=== PATIENT | male | born 1950 | race Caucasian/White ===

== ENCOUNTER 2016-12-06 10:51 | Inpatient (IN) | payer OTHER ==
[~2016-12-06] VITALS: Ht 190.5 cm; Wt 116.5 kg
[2017-01-11] VITALS (11 sets, daily range): BP systolic 112–171; BP diastolic 67–94; PULSE 92–113; TEMP 97.4–98.9
[2017-01-11] MEDS ORDERED: XANAX 1MG1 MG PO (06:39)
[2017-01-11] MEDS ORDERED: [UNRECOGNIZED DRUG - OTHER] TP (06:40)
[2017-01-11] MEDS ORDERED: ECONAZOLE NITRATE11 TOP (06:41)
[2017-01-11] MEDS ORDERED: FLONASEALLERGY NS (06:42)
[2017-01-12 02:21] VITALS: BP 111/76; PULSE 86; TEMP 97.8
[2017-01-12 05:23] VITALS: BP 113/64; PULSE 63; TEMP 97.9
[2017-01-12 07:38] LABS: HEMATOCRIT 43.9 % (42.0-52.0); HEMOGLOBIN 14.8 g/dl (13.5-18.0)
[2017-01-12 07:52] LABS: CALCIUM 8.9 mg/dL (8.4-10.2); CREATININE, serum 0.58 mg/dL (0.66-1.25); MAGNESIUM 2.1 mg/dL (1.6-2.3); PHOSPHOROUS 3.3 mg/dL (2.5-4.5); POTASSIUM 4.3 mmol/L (3.4-5.0)
[2017-01-12 09:53] VITALS: BP 129/81; PULSE 85; TEMP 98.4
[2017-01-12 13:30] VITALS: BP 143/84; PULSE 91; TEMP 99.3
[2017-01-12 18:43] VITALS: BP 133/78; PULSE 82; TEMP 98.4
[2017-01-12 20:00] VITALS: BP 130/74; PULSE 93; TEMP 98.1
[2017-01-13 04:10] VITALS: BP 133/72; PULSE 86; TEMP 98.6
[2017-01-13 10:00] VITALS: BP 137/74; PULSE 76; TEMP 98.5
[2017-01-13 12:17] VITALS: BP 131/70; PULSE 91; TEMP 97.5
[2017-01-13 14:12] VITALS: BP 135/76; PULSE 105; TEMP 98.1
[2017-01-13 17:26] VITALS: BP 134/79; PULSE 88; TEMP 98
[2017-01-13 22:03] VITALS: BP 128/77; PULSE 89; TEMP 98.4
[2017-01-14 01:59] VITALS: BP 136/74; PULSE 78; TEMP 98.4
[2017-01-14 05:26] VITALS: BP 124/76; PULSE 79; TEMP 97.9
[2017-01-14 10:17] VITALS: BP 129/75; PULSE 111; TEMP 97.5
== END 2017-01-14 11:32 | disposition home or self-care (01) | DRG 331 ==
LOC: INPTSU 01-11 05:39 → SURG 01-11 07:30 → INPTSU 01-11 12:55 → SURG 01-11 13:54
PROVIDERS: Surgery
PROC: 0WQF4ZZ Repair Abdominal Wall, Percutaneous Endoscopic Approach (ICD-10-PCS; 2017-01-11)
PROC: 0DTN4ZZ Resection of Sigmoid Colon, Percutaneous Endoscopic Approach (ICD-10-PCS; principal; 2017-01-11 07:30)
PROC: 8E0W4CZ Robotic Assisted Procedure of Trunk Region, Percutaneous Endoscopic Approach (ICD-10-PCS; 2017-01-11 07:30)
DX: C18.7 Malignant neoplasm of sigmoid colon (principal); K42.9 Umbilical hernia without obstruction or gangrene
CPT/HCPCS: OP; A4315; A9284; J1100; J1170; J1650; J1885; J2270; J2370; J2405; J2704; J3010; J7050; J7120

== ENCOUNTER → 2019-03-13 | Outpatient (CLI) | payer MEDICARE, OTHER ==
[~2019-03-13] MED LIST: ECONAZOLE NITRATE11 TOP; FLONASEALLERGY NS; XANAX 1MG1 MG PO; [UNRECOGNIZED DRUG - OTHER] TP
== END ==
LOC: COL.RAD 09:47
DX: C18.7 Malignant neoplasm of sigmoid colon (principal)
CPT/HCPCS: Q9967

== ENCOUNTER → 2022-07-08 | Outpatient (CLI) | payer MEDICARE, OTHER | LOC: COL.RAD 10:15 | DX: C18.9 Malignant neoplasm of colon, unspecified (principal) ==